=== PATIENT | male | born 1965 | race Native Hawaiian/Other Pacific Islander ===

== ENCOUNTER 2016-11-25 15:33 | Emergency (ER) | payer MEDICAID, OTHER ==
[2016-11-25 15:43] VITALS: O2SAT 97
--- NOTE | 2016-11-25 16:02 | ERPHSYRPT ---
- History of Present Illness Time Seen by Provider: 11/25/16 15:40 Source: patient, police Exam Limitations: clinical condition Patient Subjective Stated Complaint: etoh at the [employer] Triage Nursing Assessment: brought in by the police--pt states 'i drank too fucking much at the [employer] today' scattered thought process. gait steady. no injury Timing/Duration: today Severity: mild Modifying Factors: Improves With: nothing Associated Symptoms: denies symptoms Allergies/Adverse Reactions: No Known Drug Allergies Allergy (Unverified 11/25/16 15:42) Home Medications: No Home Meds 1 ea [facility] UD 11/25/16 [History] Hx Tetanus, Diphtheria Vaccination/Date Given: Yes Hx Influenza Vaccination/Date Given: No Hx Pneumococcal Vaccination/Date Given: No Immunizations Up to Date: Yes - Review of Systems Constitutional: No Symptoms Eyes: No Symptoms Ears, Nose, & Throat: No Symptoms Respiratory: No Symptoms Cardiac: No Symptoms Abdominal/Gastrointestinal: No Symptoms Musculoskeletal: No Symptoms Skin: No Symptoms Neurological: Other (Smells strongly of ETOH) Psychological: No Symptoms Endocrine: No Symptoms Hematologic/Lymphatic: No Symptoms Immunological/Allergic: No Symptoms - Past Medical History Pertinent Past Medical History: Yes Psycho-Social History: Bipolar, Depression - Past Surgical History Past Surgical History: Yes Musculoskeletal: Orthopedic Surgery - Social History Smoking Status: Current every day smoker Exposure to second hand smoke: Yes Drug Use: none Patient Lives Alone: No - Nursing Vital Signs Nursing Vital Signs: Initial Vital Signs Temperature 96.6 F Temperature Source Oral Pulse Rate 116 Respiratory Rate 18 Blood Pressure [Right Arm] 134/95 Pain Intensity 0 - Physical Exam General Appearance: no apparent distress Eye Exam: other (injected conjunctiva osmar) Ears, Nose, Throat Exam: normal ENT inspection, pharynx normal Neck Exam: normal inspection, non-tender, supple, full range of motion Respiratory Exam: normal breath sounds, lungs clear, airway intact Cardiovascular Exam: regular rate/rhythm, normal heart sounds, normal peripheral pulses Gastrointestinal/Abdomen Exam: soft, normal bowel sounds Back Exam: normal inspection, normal range of motion Extremity Exam: normal inspection, normal range of motion, pelvis stable Neurologic Exam: alert, oriented x 3, cooperative, intoxicated appearance Skin Exam: normal color, warm, dry SpO2: 97 Oxygen Delivery: Room Air - Course Nursing assessment & vital signs reviewed: Yes Ordered Tests: Active Orders 24 hr Category Date Time Status ALCOHOL [Ethyl Alcohol,Urine] Stat Lab 11/25/16 15:44 Ordered - Progress Will see patient in: office, other (PCP 1 week) Counseled pt/family regarding: lab results, diagnosis, need for follow-up - Departure Time of Disposition: 16:15 Departure Disposition: Intermediate/Care Home Clinical Impression: ETOH abuse Condition: Stable Critical Care Time: No Additional Instructions: ETOH abuse
[2016-11-25 16:34] VITALS: BP 122/68; PULSE 98
== END 2016-11-25 16:36 | disposition home or self-care (01) ==
LOC: ED 15:33
DX: F10.10 Alcohol abuse, uncomplicated (principal)
CPT/HCPCS: 80320; 83986; 99283

== ENCOUNTER 2017-06-26 12:25 | Emergency (ER) | payer OTHER, SELFPAY | END 2017-06-26 12:43 | disposition left against medical advice (07) | LOC: ED 12:25 | DX: Z53.9 Procedure and treatment not carried out, unspecified reason (principal) ==

== ENCOUNTER 2020-09-18 11:05 | Emergency (ER) | payer OTHER ==
[2020-09-18 11:23] VITALS: BP 133/83; PULSE 94; O2SAT 97
--- NOTE | 2020-09-18 11:32 | ERPHSYRPT ---
- History of Present Illness Source: patient Patient Subjective Stated Complaint: needing suture removed from R hip pain on Jul 07. all other sutures removed 1 month after procedure. pt states one was missed. Triage Nursing Assessment: pt to ED c/o pain on R hip at incision placement. sutures placed Jul 07 and others removed 1 month after procedure. noted 1 full suture at bottom of incision and 1 full suture at the top, also noted couple partial sutures mid way up incision. small redness surrounding bottom suture. otherwise no signs of infection. otherwise, surgical incision appears normal. Physician History: 55 yo wm w R hip replacement s/p R hip-pelvic fx on 07/07/20 at [facility] presents w possible infection/sutures still in place. He denies new pain/fever/drainage. Pt also had a cervical fusion due to cervical fx's. Method of Injury: direct blow Occurred: other (07/07/20) Severity of Pain-Max: mild Severity of Pain-Current: mild Lower Extremities Pain: hip: right Modifying Factors: Improves With: movement Associated Symptoms: none Allergies/Adverse Reactions: No Known Drug Allergies Allergy (Verified 09/18/20 11:23) Home Medications: No Home Meds [No Home Meds] 1 ea UD 11/25/16 [History] Hx Tetanus, Diphtheria Vaccination/Date Given: Yes Hx Influenza Vaccination/Date Given: No Hx Pneumococcal Vaccination/Date Given: No Immunizations Up to Date: No Travel Risk - International Travel Have you traveled outside of the country in past 3 weeks: No - Coronavirus Screening Are you exhibiting any of the following symptoms?: No Close contact with a COVID-19 positive Pt in past 14-21 Days: No - Review of Systems Constitutional: No Symptoms Eyes: No Symptoms Ears, Nose, & Throat: No Symptoms Respiratory: No Symptoms Cardiac: No Symptoms Abdominal/Gastrointestinal: No Symptoms Genitourinary Symptoms: No Symptoms Skin: No Symptoms Neurological: No Symptoms Psychological: No Symptoms Endocrine: No Symptoms Immunological/Allergic: Pollen Allergy - Past Medical History Pertinent Past Medical History: Yes Neurological History: No Pertinent History Cardiac History: No Pertinent History Respiratory History: No Pertinent History Endocrine Medical History: No Pertinent History Musculoskeletal History: No Pertinent History Psycho-Social History: Bipolar, Depression - Past Surgical History Past Surgical History: Yes Musculoskeletal: Orthopedic Surgery Other Surgical History: R hip replacement Jun 2020 - Social History Smoking Status: Light tobacco smoker How long have you smoked: years Exposure to second hand smoke: Yes Drug Use: none Patient Lives Alone: No Significant Family History: no pertinent family hx - Nursing Vital Signs Nursing Vital Signs: Initial Vital Signs Temperature 98.5 F 09/18/20 11:12 Pulse Rate 94 H 09/18/20 11:12 Respiratory Rate 18 09/18/20 11:12 Blood Pressure 133/83 09/18/20 11:12 O2 Sat by Pulse Oximetry 97 09/18/20 11:12 Pain Scale Pain Intensity 2 - Physical Exam General Appearance: no apparent distress Eyes, Ears, Nose, Throat Exam: normal ENT inspection, TMs normal, pharynx normal Neck Exam: normal inspection, other (C-collar in place s/p fusion) Cardiovascular/Respiratory Exam: normal breath sounds, regular rate/rhythm, h eart sounds normal Gastrointestinal/Abdominal Exam: non-tender, soft Back Exam: normal inspection, normal range of motion Hips Exam: right: other (R hip replacement-Incision clean/dry/intact/ Sutures in place on superior and inferior end of incision which were easily removed by myself. 2 other partially embedded sutures easily removed w 18G needle/ all other sutures have been removed per [facility] at previous visit) Legs Exam: bilateral leg: non-tender, normal inspection, normal range of motion, no evidence of injury Knees Exam: bilateral knee: non-tender, normal inspection, normal range of motion, no evidence of injury Neuro/Tendon Exam: normal sensation, normal motor functions, normal tendon functions, responds to pain Mental Status Exam: alert, oriented x 3, cooperative Skin Exam: normal color, warm, dry, No rash SpO2 Interpretation: normal SpO2: 97 O2 Delivery: Room Air - Course Nursing assessment & vital signs reviewed: Yes - Progress Progress: improved Progress Note: 09/18/20 11:36 Superior and inferior sutures easily removed by physician. 2 other partial embedded sutures easily removed w 18G needle. No other evidence of retained sutures. Incision wo evidence of infection. Counseled pt/family regarding: need for follow-up - Departure Departure Disposition: Home Clinical Impression: Visit for suture removal Condition: Stable Critical Care Time: No Referrals: DOCTOR,NO FAMILY [NON-STAFF PHY W/O PRIVILEGES] - Instructions: Wound Care (DC) Additional Instructions: Follow up with your orthopedic surgeon at [facility] Return to ER for increasing redness/pus/temperature greater than 100.5
== END 2020-09-18 11:42 | disposition home or self-care (01) ==
LOC: ED 11:05
DX: Z48.02 Encounter for removal of sutures (principal)
CPT/HCPCS: 99283; G0463

== ENCOUNTER 2020-10-21 16:05 | Emergency (ER) | payer OTHER ==
[2020-10-21] MEDS ORDERED: XYLOCAINE 1% HCL 20 ML MDV ONE (16:42)
--- NOTE | 2020-10-21 16:54 | ERPHSYRPT ---
- History of Present Illness Source: patient Exam Limitations: no limitations Patient Subjective Stated Complaint: Pt thinks that he was bitten by a spider approx 4-5 days ago on his right on the lateral side of the AC, area is swollen and opening up Triage Nursing Assessment: Pt brought to the ER by [facility], right lateral AC swollen and has an open wound from what appears to be a spider bite, rates pain at 1/10, doesn't appear to be in any distress Physician History: 55 yo wm w abscess R proximal, dorsal forearm. Pt denies fever and h/o abscess formation. Pain is mild. He is R handed. Timing/Duration: other (5-6 days) Quality: painful Severity: mild Location: other (R dorsal, proximal forearm) Possible Causes: no cause identified Associated Symptoms: No blisters, No change in skin texture, No difficulty breathing, No edema, No fever, No flushing, No headache, No hives, No jaundice, No malaise, No nasal congestion, No numbness, No pallor, No paresthesia, No petechiae, No rash Allergies/Adverse Reactions: No Known Drug Allergies Allergy (Verified 10/21/20 16:30) Home Medications: No Home Meds [No Home Meds] 1 [facility] 11/25/16 [History] Hx Tetanus, Diphtheria Vaccination/Date Given: No Hx Influenza Vaccination/Date Given: No Hx Pneumococcal Vaccination/Date Given: No Travel Risk - International Travel Have you traveled outside of the country in past 3 weeks: No - Coronavirus Screening Are you exhibiting any of the following symptoms?: No Close contact with a COVID-19 positive Pt in past 14-21 Days: No - Vaccine Status Have you recieved a Covid-19 vaccination: Yes [employer] - Vaccination Dates Date of 2cond Vaccination (if applicable): July, - Review of Systems Constitutional: No Symptoms Eyes: No Symptoms Ears, Nose, & Throat: No Symptoms Respiratory: No Symptoms Cardiac: No Symptoms Abdominal/Gastrointestinal: No Symptoms Genitourinary Symptoms: No Symptoms Musculoskeletal: No Symptoms Neurological: No Symptoms Psychological: No Symptoms Endocrine: No Symptoms Hematologic/Lymphatic: No Symptoms Immunological/Allergic: No Symptoms - Past Medical History Pertinent Past Medical History: Yes Neurological History: No Pertinent History Cardiac History: No Pertinent History Respiratory History: No Pertinent History Endocrine Medical History: No Pertinent History Musculoskeletal History: No Pertinent History Psycho-Social History: Bipolar, Depression - Past Surgical History Past Surgical History: Yes Musculoskeletal: Orthopedic Surgery Other Surgical History: R hip replacement Jun 2020 - Social History Smoking Status: Light tobacco smoker How long have you smoked: years Exposure to second hand smoke: Yes Drug Use: none Patient Lives Alone: No Significant Family History: no pertinent family hx - Nursing Vital Signs Nursing Vital Signs: Initial Vital Signs Temperature 97.8 F 10/21/20 16:20 Pulse Rate 89 10/21/20 16:20 Blood Pressure 128/84 10/21/20 16:20 O2 Sat by Pulse Oximetry 94 L 10/21/20 16:20 Pain Scale Pain Intensity 0 - Physical Exam General Appearance: no apparent distress Eye Exam: PERRL/EOMI, eyes nml inspection Ears, Nose, Throat Exam: normal ENT inspection, TMs normal, pharynx normal, moist mucous membranes Neck Exam: normal inspection, non-tender, supple, full range of motion, No meningismus, No mass, No Brudzinski, No Kernig's Respiratory Exam: normal breath sounds, lungs clear, airway intact, No respiratory distress Cardiovascular Exam: regular rate/rhythm, normal heart sounds, normal peripheral pulses, No murmur Gastrointestinal/Abdomen Exam: soft, normal bowel sounds Back Exam: normal inspection, normal range of motion Extremity Exam: other (Abscess R dorsal, proximal forearm) Neurologic Exam: alert, oriented x 3, cooperative, 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 nml as tested, normal mood/affect Skin Exam: warm, dry Lymphatic Exam: No adenopathy SpO2 Interpretation: normal SpO2: 94 O2 Delivery: Room Air Procedures - Incision and Drainage Timeout: Performed Anesthesia: 1% Lidocaine cc's of anesthesia: 5 Blade Size: 11 I & D Procedure: betadine prep Results: small amount pus - Course Nursing assessment & vital signs reviewed: Yes Ordered Tests: Medication Summary Discontinued Medications Generic Name Dose Route Start Last Admin Trade Name Gabriel PRN Reason Stop Dose Admin Lidocaine HCl Confirm 10/21/20 16:42 Xylocaine 1% Hcl 20 Ml Mdv Administered 10/21/20 16:43 Dose 1 ml .ROUTE .STK-MED ONE - Departure Departure Disposition: Home Clinical Impression: Abscess Condition: Stable Critical Care Time: No Referrals: DOCTOR,NO FAMILY [Primary Care Provider] - Instructions: Abscess Incision and Drainage (DC) Additional Instructions: Wash twice a day with soap/water Start Doxycycline twice a day Follow up with your family MD in 1-2 days Return to ER for increasing pain/swelling/temperature greater than 100.5/Redness Prescriptions: Doxycycline Monohydrate 100 mg PO BID #20 tablet
[2020-10-21 17:16] VITALS: BP 123/91; PULSE 90
[2020-10-21 23:27] VITALS: O2SAT 94
== END 2020-10-21 17:17 | disposition home or self-care (01) ==
LOC: ED 16:05
DX: L02.413 Cutaneous abscess of right upper limb (principal); T63.301A Toxic effect of unspecified spider venom, accidental (unintentional), initial encounter; Y92.9 Unspecified place or not applicable
CPT/HCPCS: 10060; 99283